=== PATIENT | male | born 1980 | race Caucasian/White ===

== ENCOUNTER 2017-04-07 23:07 | Emergency (ER) | payer BC ==
[~2017-04-07] VITALS: Ht 180.3 cm; Wt 125.4 kg
[2017-04-08] MEDS ORDERED: ULTRACET1 TABLET PO (00:07)
[2017-04-08 00:29] VITALS: BP 143/94
== END 2017-04-08 00:29 | disposition home or self-care (01) ==
LOC: EME 23:07 → EXP 23:07
DX: M25.561 Pain in right knee (principal)
CPT/HCPCS: 73564; 99281; 99283